=== PATIENT | female | born 1965 | race Caucasian/White ===

== ENCOUNTER 2019-01-20 16:30 | Outpatient (REF) | payer OTHER, SELFPAY ==
[2019-01-20 21:52] LABS: TSH 2.88 uIU/mL (0.358-3.74)
== END 2019-01-20 16:50 ==
LOC: NCHCN 16:30
PROVIDERS: PCP Nurse Practitioner Family; Visit Provider Nurse Practitioner Family
DX: R00.2 Palpitations (principal)
CPT/HCPCS: 84443

== ENCOUNTER 2020-05-21 14:45 | Outpatient (REF) | payer OTHER, SELFPAY ==
[2020-05-25 04:01] LABS: SARS-CoV-2 RNA Undetected (Undetected)
== END 2020-05-21 15:05 ==
LOC: NCHCN 14:45
PROVIDERS: PCP Nurse Practitioner Family; Visit Provider Nurse Practitioner Family
DX: Z11.59 Encounter for screening for other viral diseases (principal)
CPT/HCPCS: U0003

== ENCOUNTER 2020-07-22 09:10 | Outpatient (REF) | payer OTHER, SELFPAY ==
[2020-07-22 21:16] LABS: HCT 44.6 % (36.0-46.0); HGB 14.4 g/dL (11.2-15.7); MCH 29.3 pg (27.0-33.0); MCHC 32.3 % (32.0-36.0); MCV 90.7 fL (80-95); MPV 11.8 fL (8.0-11.0); Platelet Count 195 10^3/uL (130-400); RBC 4.92 10^6/uL (3.93-5.22); RDW 11.9 % (11.7-14.6); RDW-SD 39.7 fL
[2020-07-22 21:47] LABS: Anion Gap 6.9 mmol/L (3-11); BUN 15 mg/dL (7-18); CO2 29.1 mmol/L (21.0-32.0); CREATININE 0.85 mg/dL (0.55-1.02); Calcium 9.3 mg/dL (8.5-10.1); Chloride 103 mmol/L (98-107); Glucose 94 mg/dL (74-106); Potassium 3.5 mmol/L (3.5-5.1); Sodium 139 mmol/L (136-145); TSH 4.77 uIU/mL (0.36-3.74)
[2020-07-26 14:19] LABS: Tissue Transglutaminase Ab IgA <1.2 U/mL
== END 2020-07-22 09:30 ==
LOC: NCHCN 09:10
PROVIDERS: PCP Nurse Practitioner Family; Visit Provider Nurse Practitioner Family
DX: R19.7 Diarrhea, unspecified (principal)
CPT/HCPCS: 80048; 85027; 83516; 84443

== ENCOUNTER → 2020-07-28 19:50 | Outpatient (REF) | payer OTHER, SELFPAY ==
[2020-08-03 17:07] LABS: Giardia & Cryptosporidium Ag See Comments; Parasite Growth See Comments
== END ==
LOC: NCHCN 19:50
PROVIDERS: PCP Nurse Practitioner Family; Visit Provider Nurse Practitioner Family
DX: R19.7 Diarrhea, unspecified (principal)
CPT/HCPCS: 87329; 87505; 87177; 87230

== ENCOUNTER 2021-05-25 17:34 | Outpatient (REF) | payer OTHER, SELFPAY ==
[2021-05-25 14:22] LABS: Calculated LDL 139 mg/dL (<100); Cholesterol 214 mg/dL (<200); HDL Cholesterol 63 mg/dL (40-60); TSH 2.92 uIU/mL (0.36-3.74); Triglyceride 63 mg/dL (<150)
== END 2021-05-25 17:35 | disposition home or self-care (01) ==
LOC: NCHCN 17:34
PROVIDERS: PCP Nurse Practitioner Family; Visit Provider Nurse Practitioner Family
DX: Z00.00 Encounter for general adult medical examination without abnormal findings (principal); Z13.820 Encounter for screening for osteoporosis; Z13.220 Encounter for screening for lipoid disorders; Z82.62 Family history of osteoporosis; R63.4 Abnormal weight loss
CPT/HCPCS: 80061; 84443

== ENCOUNTER 2021-10-09 14:56 | Outpatient (REF) | payer OTHER, SELFPAY ==
[2021-10-10 01:34] LABS: COVID-19 RT-PCR UVMMC Result Negative (Negative)
== END 2021-10-09 14:57 | disposition home or self-care (01) ==
LOC: NCHCN 14:56
PROVIDERS: PCP Nurse Practitioner Family; Visit Provider Nurse Practitioner Family
DX: Z20.822 Contact with and (suspected) exposure to COVID-19 (principal); J06.9 Acute upper respiratory infection, unspecified
CPT/HCPCS: U0003

== ENCOUNTER 2022-10-18 09:56 | Outpatient (REF) | payer BC, SELFPAY ==
--- NOTE | 2022-10-18 08:15 | PAPFT_PTH ---
PATIENT: Susan Umana LOC: [facility] U#:[id number] AGE/SX: 57/F ROOM: RE10/18/[address]: Jessie Ramírez : 1965 BED: DIS: 10/18/2022 SPEC #: [id number] RECD: 10/18/22 17:51 STATUS: MARISOL REMonica #: [id number] ADRIÁN: 10/18/22 08:[address]: Jessie Mcghee DEPT: [facility] Cytology RECD BY: Mary Patel Tissues: 1 - CX/ENDOCX FOR PAP SMEARS Procedures: PAP THIN PREP/[facility] Screening HPV DNA PROBE Comments: [id number]
--- OUTSIDE RECORDS SUMMARY | 2022-10-18 09:58 | XMS_ITS | CCD ---
:1965 Author Care Team Providers Name Role Phone JEWEL PIZANO Attending Physician Unavailable Vital Signs Unknown or Not Available. Allergies Unknown or Not Available. Procedures Unknown or Not Available. History of Immunizations Unknown or Not Available. Problems Unknown or Not Available. Results Unknown or Not Available. Active Medications Unknown or Not Available. Medications Administered During Visit Unknown or Not Available. Encounters Encounter Diagnosis Diagnosis Code Start Date Encounter for screening mammogram for malignant neoplasm Z12 31 09/14/2021 of breast Social History Smoking Status Code Start Date End Date Never smoker [id number] Patient Decision Aids Unknown or Not Available. Discharge Instructions You were admitted to [facility] on 09/14/2021 14:22 with a principal diagnosis of Encounter for screening mammogram for malignant neoplasm of breast You were discharged from [facility] on 09/14/2021 14:22 Should you have any questions prior to d ischarge, please contact a member of your healthcare team. If you have left the ho spital and have any questions, please contact your primary care physician. Chief Complaint and Reason For Visit Chief Complaint Date of Onset Menopausal and female climacteric states Encounter for screening mammogram for malignant neopla sm of breast Function Status Unknown or Not Available. Plan of Care Unknown or Not Available. Referral/Transition of Care Unknown or Not Available.
== END 2022-10-18 09:57 | disposition home or self-care (01) ==
LOC: NCHCN 09:56
PROVIDERS: PCP Nurse Practitioner Family; Visit Provider Nurse Practitioner Family
DX: Z12.4 Encounter for screening for malignant neoplasm of cervix (principal); Z11.51 Encounter for screening for human papillomavirus (HPV)
CPT/HCPCS: 88142; 87624

== ENCOUNTER 2023-01-11 14:56 | Outpatient (REF) | payer BC, SELFPAY ==
[2023-01-11 21:31] LABS: ESR 22 mm/hr (0-30)
[2023-01-11 21:32] LABS: HCT 37.6 % (36.0-46.0); HGB 12.2 g/dL (11.2-15.7); MCHC 32.4 % (32.0-36.0); MCV 90 fL (80-95); MPV 10.3 fL (8.0-11.0); Platelet Count 244 10^3/uL (130-400); RDW 12.2 % (11.7-14.6); RDW-SD 39.4 fL; WBC 5.79 10^3/uL (4.4-10.8)
[2023-01-11 21:34] LABS: Anion Gap 4.4 mmol/L (3-11); BUN 14 mg/dL (7-18); CO2 30.6 mmol/L (21.0-32.0); CREATININE 0.8 mg/dL (0.55-1.02); Calcium 9.3 mg/dL (8.5-10.1); Chloride 104 mmol/L (98-107); Estimated GFR 84.82 (mL/min/1.73m2); Glucose 104 mg/dL (74-106); Magnesium 2.5 mg/dL (1.8-2.4); Potassium 4.2 mmol/L (3.5-5.1); Sodium 139 mmol/L (136-145); TSH (W/Ref FT4) 1.65 uIU/mL (0.36-3.74)
[2023-01-11 21:48] LABS: Vitamin D 25 Total 26.9 ng/mL (30-100)
[2023-01-13 16:28] LABS: CRP, High Sensitivity 7.55 mg/L (See Note)
== END 2023-01-11 14:57 | disposition home or self-care (01) ==
LOC: NCHCN 14:56
PROVIDERS: PCP Nurse Practitioner Family; Visit Provider Family Medicine
DX: R53.83 Other fatigue (principal); M79.18 Myalgia, other site; E55.9 Vitamin D deficiency, unspecified
CPT/HCPCS: 80048; 82306; 85027; 85652; 86141; 83735; 84443

== ENCOUNTER 2023-04-04 17:30 | Outpatient (REF) | payer BC, SELFPAY ==
[2023-04-04 21:19] LABS: HCT 38.6 % (36.0-46.0); HGB 12.7 g/dL (11.2-15.7); MCH 29.2 pg (27.0-33.0); MCHC 32.9 % (32.0-36.0); MCV 89 fL (80-95); MPV 10.4 fL (8.0-11.0); Platelet Count 204 10^3/uL (130-400); RBC 4.35 10^6/uL (3.93-5.22); RDW 12.1 % (11.7-14.6); RDW-SD 39.5 fL; WBC 4.15 10^3/uL (4.4-10.8)
[2023-04-04 21:21] LABS: ESR 22 mm/hr (0-30)
[2023-04-04 21:26] LABS: ALT 19 U/L (14-59); AST 23 U/L (15-37); Albumin 3.8 g/dL (3.4-5.0); Alkaline Phosphatase 81 U/L (46-116); Anion Gap 9.3 mmol/L (3-11); BUN 12 mg/dL (7-18); Bilirubin, Total 0.3 mg/dL (0.2-1.0); CO2 28.7 mmol/L (21.0-32.0); CREATININE 0.6 mg/dL (0.55-1.02); Calcium 8.6 mg/dL (8.5-10.1); Chloride 103 mmol/L (98-107); Estimated GFR 103.33 (mL/min/1.73m2); Glucose 91 mg/dL (74-106); Potassium 4.1 mmol/L (3.5-5.1); Sodium 141 mmol/L (136-145); Total Protein 7.5 g/dL (6.4-8.2)
[2023-04-04 21:47] LABS: Vitamin D 25 Total 34.8 ng/mL (30-100)
[2023-04-04 21:59] LABS: C-Reactive Protein < 0.05 mg/dL (0.0-0.3)
== END 2023-04-04 17:31 | disposition home or self-care (01) ==
LOC: NCHCN 17:30
PROVIDERS: PCP Nurse Practitioner Family; Visit Provider Family Medicine
DX: R51.9 Headache, unspecified (principal); M31.6 Other giant cell arteritis
CPT/HCPCS: 80053; 82306; 85027; 85652; 86140

== ENCOUNTER 2023-05-06 18:13 | Outpatient (REF) | payer BC, SELFPAY ==
[2023-05-06 22:01] LABS: Abs Immature Grans 0.02 10^3/uL (0.0-0.06); Absolute Basophil Count 0.03 10^3/uL (0.0-0.2); Absolute Eosinophil Count 0.02 10^3/uL (0.0-0.7); Absolute Lymphocyte Count 0.91 10^3/uL (1.2-3.4); Absolute Monocyte Count 0.33 10^3/uL (0.1-0.8); Absolute Neutrophil Count 5.57 10^3/uL (1.2-6.7); Basophils % 0.4; Eosinophils % 0.3; HCT 40.1 % (36.0-46.0); HGB 12.9 g/dL (11.2-15.7); Immature Grans % 0.3; Lymphocytes % 13.2; MCH 29.2 pg (27.0-33.0); MCHC 32.2 % (32.0-36.0); MCV 91 fL (80-95); MPV 10.5 fL (8.0-11.0); Monocytes % 4.8; Platelet Count 233 10^3/uL (130-400); RBC 4.42 10^6/uL (3.93-5.22); RDW 14.1 % (11.7-14.6); RDW-SD 47.4 fL; WBC 6.88 10^3/uL (4.4-10.8)
== END 2023-05-06 18:14 | disposition home or self-care (01) ==
LOC: NCHCN 18:13
PROVIDERS: PCP Nurse Practitioner Family; Visit Provider Nurse Practitioner Family
DX: R23.8 Other skin changes (principal); R23.3 Spontaneous ecchymoses
CPT/HCPCS: 85025

== ENCOUNTER 2023-09-25 15:51 | Outpatient (REF) | payer BC, SELFPAY ==
[2023-09-25 14:44] LABS: HCT 41.5 % (36.0-46.0); HGB 13.7 g/dL (11.2-15.7); MCH 29.2 pg (27.0-33.0); MCV 89 fL (80-95); MPV 10.5 fL (8.0-11.0); Platelet Count 193 10^3/uL (130-400); RBC 4.69 10^6/uL (3.93-5.22); RDW 11.9 % (11.7-14.6); RDW-SD 38.1 fL
[2023-09-25 15:09] LABS: Anion Gap 7.2 mmol/L (3-11); BUN 14 mg/dL (7-18); CO2 28.8 mmol/L (21.0-32.0); CREATININE 0.9 mg/dL (0.55-1.02); Calcium 9.1 mg/dL (8.5-10.1); Calculated LDL 132 mg/dL (<100); Chloride 103 mmol/L (98-107); Cholesterol 215 mg/dL (<200); Estimated GFR 73.19 (mL/min/1.73m2); Glucose 89 mg/dL (74-106); HDL Cholesterol 67 mg/dL (40-60); Potassium 3.8 mmol/L (3.5-5.1); Sodium 139 mmol/L (136-145); TSH (W/Ref FT4) 2.43 uIU/mL (0.36-3.74); Triglyceride 80 mg/dL (<150)
--- OUTSIDE RECORDS SUMMARY | 2023-09-25 16:01 | XMS_ITS | CCD ---
Author Name Unknown Address [address] [place] [address] [phone] Organization Unknown Address [address] [place] [address] [phone] Care Team Providers Care [employer] Name Role Phone JEWEL PIZANO Attending Physician [phone] Vital Signs Unknown or Not Available. Allergies Unknown or Not Available. Procedures Unknown or Not Available. History of Immunizations Unknown or Not Available. Problems Unknown or Not Available. Results Unknown or Not Available. Active Medications Unknown or Not Available. Medications Administered During Visit Unknown or Not Available. Encounters Encounter Diagnosis Diagnosis Code Start Date Encounter for screening mamm ogram for malignant neoplasm of breast Z1231 09/14/2021 Social History Smoking Status Code Start Date End Date Never smoker [id number] Patient Decision Aids Unknown or Not Available. Discharge Instructions You were admitted to [facility] on 09/14/2021 14:22 with a principal diagnosis of Encounter for screening mammogram for malignant neoplasm of breast You were discharged from [facility] on 09/14/2021 14:22 Should you have any questions prior to discharge, please contact a member of your healthcare team. If you have left the hospital and have any questions, please contact your primary care physician. Chief Complaint and Reason For Visit Chief Complaint Date of Onset Menopausal and female climacteric states Encounter for screening mammogram for ma lignant neoplasm of breast Function Status Unknown or Not Available. Plan of Care Unknown or Not Available. Referral/Transition of Care Unknown or Not Available.
--- OUTSIDE RECORDS SUMMARY | 2023-09-25 16:01 | XMS_ITS | CCD ---
Author Name Unknown Address [address] [place] [address] [phone] Organization Unknown Address [address] [place] [address] [phone] Care Team Providers Care [employer] Name Role Phone JEWEL PIZANO Attending Physician [phone] Vital Signs Unknown or Not Available. Allergies Unknown or Not Available. Procedures Unknown or Not Available. History of Immunizations Unknown or Not Available. Problems Unknown or Not Available. Results Unknown or Not Available. Active Medications Unknown or Not Available. Medications Administered During Visit Unknown or Not Available. Encounters Encounter Diagnosis Diagnosis Code Start Date Screening mammography [id number] 01/09/2023 Social History Smoking Status Code Start Date End Date Never smoker [id number] Patient Decision Aids Unknown or Not Available. Discharge Instructions You were admitted to [facility] on 01/09/2023 08:21 with a principal diagnosis of Encounter for screening mammogram for malignant neoplasm of breast You were discharged from [facility] on 01/09/2023 08:21 Should you have any questions prior to discharge, please contact a member of your healthcare team. If you have left the hospital and have any questions, please contact your primary care physician. Chief Complaint and Reason For Visit Chief Complaint Date of Onset SCREENING Function Status Unknown or Not Available. Plan of Care Unknown or Not Available. Referral/Transition of Care Unknown or Not Available.
--- OUTSIDE RECORDS SUMMARY | 2023-09-25 16:01 | XMS_ITS | CCD ---
Author Name Unknown Address [address] [place] [address] [phone] Organization Unknown Address [address] [place] [address] [phone] Care Team Providers Care [employer] Name Role Phone TEN HINTON Attending Physician [phone] Vital Signs Unknown or Not Available. Allergies Unknown or Not Available. Procedures Unknown or Not Available. History of Immunizations Unknown or Not Available. Problems Unknown or Not Available. Results Unknown or Not Available. Active Medications Unknown or Not Available. Medications Administered During Visit Unknown or Not Available. Encounters Unknown or Not Available. Social History Smoking Status Code Start Date End Date Never smoker [id number] Patient Decision Aids Unknown or Not Available. Discharge Instructions You were admitted to [facility] on 09/18/2023 12:54 You were discharged from [facility] on 09/18/2023 12:54 Should you have any questions prior to discharge, please contact a member of your healthcare team. If you have left the hospital and have any questions, please contact your primary care physician. Chief Complaint and Reason For Visit Unknown or Not Available. Function Status Unknown or Not Available. Plan of Care Unknown or Not Available. Referral/Transition of Care Unknown or Not Available.
== END 2023-09-25 15:52 | disposition home or self-care (01) ==
LOC: LBN 15:51
PROVIDERS: PCP Nurse Practitioner Family; Visit Provider Nurse Practitioner Adult Health
DX: R00.2 Palpitations (principal); E78.00 Pure hypercholesterolemia, unspecified
CPT/HCPCS: 80048; 80061; 85027; 84443

== ENCOUNTER 2024-11-19 12:33 | Outpatient (REF) | payer BC, SELFPAY ==
[2024-11-19 14:12] LABS: HCT 42.6 % (36.0-46.0); HGB 13.7 g/dL (11.2-15.7); MCH 29.5 pg (27.0-33.0); MCHC 32.2 % (32.0-36.0); MCV 92 fL (80-95); Platelet Count 187 10^3/uL (130-400); RBC 4.65 10^6/uL (3.93-5.22); RDW 12.1 % (11.7-14.6); RDW-SD 40.5 fL; WBC 4.23 10^3/uL (4.4-10.8)
[2024-11-19 16:04] LABS: ALT 41 U/L (14-59); AST 26 U/L (15-37); Alkaline Phosphatase 73 U/L (46-116); Anion Gap 8.2 mmol/L (3-11); BUN 14 mg/dL (7-18); Bilirubin, Total 0.52 mg/dL (0.2-1.0); CO2 27.8 mmol/L (21.0-32.0); CREATININE 0.9 mg/dL (0.55-1.02); Calcium 9.2 mg/dL (8.5-10.1); Calculated LDL 88 mg/dL (<100); Chloride 105 mmol/L (98-107); Cholesterol 176 mg/dL (<200); Estimated GFR 72.73 (mL/min/1.73m2); Glucose 92 mg/dL (74-106); HDL Cholesterol 75 mg/dL (40-60); Potassium 4.2 mmol/L (3.5-5.1); Sodium 141 mmol/L (136-145); TSH 2.73 uIU/mL (0.36-3.74); Total Protein 7.7 g/dL (6.4-8.2); Triglyceride 69 mg/dL (<150)
== END 2024-11-19 12:34 | disposition home or self-care (01) ==
LOC: NCHCN 12:33
PROVIDERS: PCP Nurse Practitioner Family; Visit Provider Nurse Practitioner Family
DX: E78.5 Hyperlipidemia, unspecified (principal); R63.4 Abnormal weight loss; Z13.0 Encounter for screening for diseases of the blood and blood-forming organs and certain disorders involving the immune mechanism; Z13.29 Encounter for screening for other suspected endocrine disorder
CPT/HCPCS: 80053; 80061; 85027; 84443